=== PATIENT | male | born 2000 | race Caucasian/White ===

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

== ENCOUNTER 2022-11-20 10:10 | Emergency (ER) | payer BC, SELFPAY ==
[2022-11-20 10:10] VITALS: BP 143/89; PULSE 76; RESP 20; TEMP 36.6; O2SAT 98; BMI 34.0
[2022-11-20 10:42] LABS: UTC Strep Screen (Rapid) Negative (Negative)
--- NOTE | 2022-11-20 10:42 | EXP.UTC ---
Discharge Plan Disposition Patient Disposition: Home, Self-Care Condition: Good Prescriptions Prescriptions: No Action albuterol sulfate 90 mcg/actuation HFA aerosol inhaler 2 puff INHALATION Q4-6H PRN (Reason: shortness of breath or wheezing) Qty: 8.5 0RF prednisone 20 mg tablet 20 mg PO BID 5 Days Qty: 10 0RF naproxen 500 mg tablet 500 mg PO BID Qty: 30 0RF albuterol sulfate 8.5 GM HFA aerosol inhaler 8.5 gm IH BID PRN (Reason: Wheezing) Qty: 1 0RF amoxicillin 500 MG capsule 500 mg PO BID 10 Days Qty: 20 0RF prednisone 20 MG tablet 20 mg PO BID 4 Days Qty: 8 0RF [id number] 118 ML syrup 5 ml PO Q6HP PRN (Reason: Cough) Qty: 240 0RF cefdinir 300 MG capsule 300 mg PO BID Qty: 20 0RF albuterol sulfate 8.5 GM HFA aerosol inhaler 2 puffs IH Q6HP PRN (Reason: Shortness Of Breath) 30 Days Qty: 1 5RF Referrals Follow up/Referrals: Provider,Referral, MD [Primary Care Provider] - See instructions Activity Restrictions/Add. Instructions Additional Instructions/Restrictions: *Monitor Temp, Over the counter Motrin or Tylenol as directed/as needed Tylenol every 4 hours and Motrin every 6 hours (as long as your family doctor has told you that you can take it) for fever or pain. and straight to ER if unable to lower temp less than 101.0 after medication given *Warm salt water gargles may help to soothe the throat *Throat Lozenges? *Warm fluids like tea with honey may help to soothe the throat? *Sleep elevated *Humidifier/Vaporizer Your throat swab was sent for culture. Those results are typically sent to your primary care. Be sure to follow up in 2-3 days with your family doctor/primary care physician if no improvement so they can review those result and treat if necessary. If you don?t have a primary care doctor, I recommend you get one but in the mean time, you will have to return to a walk in clinic Follow up IMMEDIATELY for new or worsening symptoms or no Noticeable improvement over the next 48-72 hours. 911 for difficulty breathing or swallowing Clinical Impressions Clinical Impression: Sore throat (viral) Stand Alone Forms Stand Alone Forms: Work/School Release Instructions Patient Instructions: Sore Throat, Viral Pharyngitis Discharge ED Provider: [place]ly [place]ing [facility] [place] General Stated complaint: Sore throat,Vomiting Time Seen by Provider: 11/20/22 10:42 History of Present Illness Provider Complaint: Patient states that he woke up this morning with sore throat and vomited x 1 States that he has continued to have sore throat but not vomited anymore so he came in to get checked Related Data Previous Rx's Medication Instructions Recorded albuterol sulfate 90 mcg/actuation 2 puff inhalation Q4-6H PRN 03/30/21 aerosol inhaler shortness of breath or wheezing #8.5 grams albuterol sulfate 90 mcg/actuation 8.5 gm IH BID PRN Wheezing #1 ea 06/15/21 aerosol inhaler albuterol sulfate 90 mcg/actuation 2 puffs IH Q6HP PRN Shortness Of 08/26/21 aerosol inhaler Breath 30 days #1 ea Allergies Allergy/AdvReac Type Severity Reaction Status Date / Time No Known Allergies Allergy Verified 11/20/22 10:47 [facility] Disclaimer: The information contained in this section may have been updated after the patient was seen, as this information can be updated by other users. Social History Smoking Status: Current every day smoker tobacco type: e-cigarettes alcohol intake: never substance use type: denies use current occupational status: employed Travel in the last 8 weeks: Inside the [place] ROS Obtained: Yes All systems reviewed & no additional complaints except as documented and Yes Systems reviewed as appropriate & no additional complaints except as documented Constitutional Constitutional: Reports system reviewed and no additional complaints, except as documented, Reports as per HPI and Reports heada
[2022-11-20 11:30] VITALS: BP 143/89; PULSE 76; RESP 17; TEMP 36.6; O2SAT 98
== END 2022-11-20 11:10 | disposition home or self-care (01) ==
PROVIDERS: Emergency Provider Nurse Practitioner
DX: J02.9 Acute pharyngitis, unspecified (principal)
CPT/HCPCS: 87880; 99212; G0463

== ENCOUNTER 2023-09-02 21:14 | Emergency (ER) | payer OTHER, BC, SELFPAY ==
[2023-09-02 21:31] VITALS: BP 125/72; PULSE 81; RESP 16; TEMP 36.9; O2SAT 100; BMI 34.0
--- NOTE | 2023-09-02 21:52 | PC.NURSE ---
rounded on pt. no needs at this time, awaiting xrays
[2023-09-02 22:01] VITALS: BP 139/75; PULSE 83; RESP 20; O2SAT 97
--- NOTE | 2023-09-02 22:13 | XR_ITS ---
PROCEDURE INFORMATION: Exam: XR Left Scapula Exam date and time: 09/02/2023 10:14 PM Age: 22 years old Clinical indication: Injury or trauma; Fall; Work related; Blunt trauma (contusions or hematomas); Patient HX: Fell on a odilia at work tonight & landed on posterior left shoulder TECHNIQUE: Imaging protocol: Radiologic exam of the left scapula. Complete exam. COMPARISON: CR XR SHOULDER LT MIN 2V 09/02/2023 10:12 PM FINDINGS: Bones/joints: Mildly displaced fracture of the inferior tip of the scapula. No other fracture. No dislocation. Soft tissues: Normal. IMPRESSION: Mildly displaced fracture of the inferior tip of the scapula.
--- NOTE | 2023-09-02 22:13 | XR_ITS ---
PROCEDURE INFORMATION: Exam: XR Left Shoulder Exam date and time: 09/02/2023 10:12 PM Age: 22 years old Clinical indication: Injury or trauma; Fall; Work related; Blunt trauma (contusions or hematomas); Patient HX: Fell on a odilia at work tonight & landed on posterior left shoulder TECHNIQUE: Imaging protocol: Radiologic exam of the left shoulder. Views: 2 or more views. COMPARISON: CR XR CHEST PORTABLE 06/15/2021 10:03 AM FINDINGS: Bones/joints: Mildly displaced fracture of the inferior tip of the scapula. No other fracture. No dislocation. Soft tissues: Normal. IMPRESSION: Mildly displaced fracture of the inferior tip of the scapula.
[2023-09-02 22:30] VITALS: BP 149/87; PULSE 79; RESP 18; O2SAT 98
--- NOTE | 2023-09-02 22:54 | HMH.EDGENADL ---
Discharge Plan Disposition Patient Disposition: Home, Self-Care Prescriptions Prescriptions: No Action albuterol sulfate 90 mcg/actuation HFA aerosol inhaler 2 puff INHALATION Q4-6H PRN (Reason: shortness of breath or wheezing) Qty: 8.5 0RF albuterol sulfate 8.5 GM HFA aerosol inhaler 8.5 gm IH BID PRN (Reason: Wheezing) Qty: 1 0RF albuterol sulfate 8.5 GM HFA aerosol inhaler 2 puffs IH Q6HP PRN (Reason: Shortness Of Breath) 30 Days Qty: 1 5RF Referrals Follow up/Referrals: Kristopher Caruso DO [Staff Physician] - See instructions Provider,Referral, [Primary Care Provider] - See instructions Activity Restrictions/Add. Instructions Additional Instructions/Restrictions: Call your family doctor to establish care for this visit to the emergency department and schedule follow-up within 48 hours to ensure improvement. If you have any worsening of your condition or any other concerning signs or symptoms, return to the emergency department or your primary care doctor for further evaluation. Dr. Moore's information here for orthopedics Clinical Impressions Clinical Impression: Closed fracture of left scapula Qualifiers: Encounter type: initial encounter Scapula location: other part of scapula Qualified Code(s): S42.192A - Fracture of other part of scapula, left shoulder, initial encounter for closed fracture Stand Alone Forms Stand Alone Forms: Work/School Release Discharge ED Provider: Saqib Vora General Adult HPI General Chief complaint: PAIN Stated complaint: WC fall 09/02, left shoulder pain Time Seen by Provider: 09/02/23 21:43 Mode of Arrival: Ambulatory Source of Information: Patient Limitations: No Limitations Description of Symptoms (Recalled from ER Triage Doc. by RN): pt c/o L shoulder pain. pt states he was at work at [employer] when he fell and his his should on the corner of a doly. pt c/o tingling and pain in his L arm. History of Present Illness HPI narrative: 22-year-old male who is otherwise healthy presenting with left shoulder pain. Patient states that he fell at work and hit his left shoulder. Having pain in that side and difficulty ranging his left shoulder. Has not taken anything for the pain. Related Data Previous Rx's Medication Instructions Recorded albuterol sulfate 90 mcg/actuation 2 puff inhalation Q4-6H PRN 06/24/21 aerosol inhaler shortness of breath or wheezing #8.5 grams albuterol sulfate 90 mcg/actuation 8.5 gm IH BID PRN Wheezing #1 ea 06/15/21 aerosol inhaler albuterol sulfate 90 mcg/actuation 2 puffs IH Q6HP PRN Shortness Of 08/26/21 aerosol inhaler Breath 30 days #1 ea Allergies Allergy/AdvReac Type Severity Reaction Status Date / Time No Known Allergies Allergy Verified 09/02/23 21:35 [facility] Disclaimer: The information contained in this section may have been updated after the patient was seen, as this information can be updated by other users. Social History Smoking Status: Current every day smoker tobacco type: e-cigarettes alcohol intake: never substance use type: denies use current occupational status: employed Travel in the last 8 weeks: Inside the [place] ROS Obtained: Yes All systems reviewed & no additional complaints except as documented Physical Exam General General appearance: alert and in no apparent distress Head Head exam: atraumatic and normocephalic Eye Eye exam: Present normal appearance, PERRL and EOMI ENT ENT exam: Present mucous membranes moist Neck Neck exam: Present normal inspection, full ROM and trachea midline Respiratory Respiratory exam: Present normal lung sounds bilaterally; Absent respiratory distress, wheezes, stridor, accessory muscle use or prolonged expiratory phase Cardiovascular Cardiovascular exam: Present normal rhythm Abdominal Exam Abdominal exam: Present soft; Absent distention, tenderness, guarding, rebound, rigidity or normal delia
[2023-09-02 23:35] VITALS: BP 140/79; PULSE 89; RESP 20; TEMP 36.7; O2SAT 97
== END 2023-09-02 23:38 | disposition home or self-care (01) ==
PROVIDERS: Emergency Provider Emergency Medicine
DX: S42.192A Fracture of other part of scapula, left shoulder, initial encounter for closed fracture (principal); F17.290 Nicotine dependence, other tobacco product, uncomplicated; W01.198A Fall on same level from slipping, tripping and stumbling with subsequent striking against other object, initial encounter; M25.512 Pain in left shoulder
CPT/HCPCS: 73010; 73030; 99283

== ENCOUNTER 2023-10-30 18:52 | Emergency (ER) | payer BC, SELFPAY ==
[2023-10-30 19:20] VITALS: BP 131/77; PULSE 79; RESP 17; TEMP 36.8; O2SAT 100; BMI 35.9
--- NOTE | 2023-10-30 19:46 | ED_ITS ---
Discharge Plan Disposition Patient Disposition: Home, Self-Care Condition: Good Prescriptions Prescriptions: New amoxicillin 875 mg tablet 875 mg PO Q12H Qty: 20 0RF fluticasone propionate [Flonase Allergy Relief] 50 mcg/actuation spray,suspension 2 spray intranasal DAILY Qty: 16 0RF Rx Instructions: administer into each nostril daily pseudoephedrine HCl [Sudafed 12 Hour] 120 mg tablet extended release 120 mg PO Q12H PRN (Reason: nasal congestion) Qty: 20 0RF Referrals Follow up/Referrals: Provider,Referral, MD [Primary Care Provider] - See instructions Activity Restrictions/Add. Instructions Additional Instructions/Restrictions: *Monitor Temp, Over the counter Motrin or Tylenol as directed/as needed Tylenol every 4 hours and Motrin every 6 hours (as long as your family doctor has told you that you can take it) for fever or pain. and straight to ER if unable to lower temp less than 101.0 after medication given *Take medication as prescribed *Sleep elevated *Humidifier/Vaporizer *Flonase 2 sprays in each nostril daily but be aware that it may take 2-3 days before you notice improvement Follow up IMMEDIATELY for new or worsening symptoms or no Noticeable improvement over the next 48-72 hours. 911 for difficulty breathing or swallowing Clinical Impressions Clinical Impression: Otitis media Qualifiers: Otitis media type: unspecified Laterality: right Qualified Code(s): H66.91 - Otitis media, unspecified, right ear Instructions Patient Instructions: Middle Ear Infection, Pseudoephedrine Discharge ED Provider: Shelly Ching [facility] General Stated complaint: Right earache Mode of Arrival: Ambulatory Source of Information: Patient Limitations: No Limitations Time Seen by Provider: 10/30/23 19:47 Description of Symptoms (Recalled from Triage Doc. by RN): PATIENT C/O DECREASED HEARING TO RIGHT EAR X 4 DAYS HEENT Symptoms (Recalled from RN notes): Yes Resp Symptoms (Recalled from RN notes): No Skin Symptoms (Recalled from RN notes): No MS Symptoms (Recalled from RN notes): No Functional Status (Recalled from RN notes): WNL History of Present Illness Provider Complaint: Patient states that he has been having pain and pressure in his right ear for about 4 days and feels like it is under water having trouble hearing out of his right ear States today it was hurting him worse and couldnt hear at all so he came in Related Data Previous Rx's Medication Instructions Recorded amoxicillin 875 mg tablet 875 mg PO Q12H #20 tabs 10/30/23 fluticasone propionate 50 2 spray intranasal DAILY #16 grams 10/30/23 mcg/actuation nasal spray,suspension (Flonase Allergy Relief) pseudoephedrine HCl 120 mg 120 mg PO Q12H PRN nasal 10/30/23 tablet,extended release (Sudafed congestion #20 tabs 12 Hour) Allergies Allergy/AdvReac Type Severity Reaction Status Date / Time No Known Allergies Allergy Verified 10/17/23 09:51 Worker's Comp Is this a Worker's Comp case?: No [facility] Disclaimer: The information contained in this section may have been updated after the patient was seen, as this information can be updated by other users. Medical History (Updated 10/30/23 @ 19:57 by Shelly Ching APRN) Asthma Social History Smoking Status: Current every day smoker tobacco type: e-cigarettes alcohol intake: never substance use type: denies use current occupational status: employed Travel in the last 8 weeks: [place] the [place] ROS Obtained: Yes All systems reviewed & no additional complaints except as documented and Yes Systems reviewed as appropriate & no additional complaints except as documented Constitutional Constitutional: Reports system reviewed and no additional complaints, except as documented and Reports as per HPI ENT Ears, Nose, Mouth, and Throat: Reports system reviewed and no additional complaints, except as documented, Reports as per HPI and Reports otalgia Cardiovascular Cardiovascular: Reports system reviewed and no additional complaints, except as documented and Reports as per HPI Respiratory Respiratory: Reports system reviewed and no additional complaints, except as documented and Reports as per HPI Gastrointestinal Gastrointestingal: Reports system reviewed and no additional complaints, except as documented and as per HPI Physical Exam General General appearance: alert and in no apparent distress ENT ENT exam: Present mucous membranes moist Expanded ENT Exam TM/Canal exam: Right TM: bulging and Bilateral TM: erythema Respiratory Respiratory exam: Present normal lung sounds bilaterally; Absent respiratory dis tress or wheezes Cardiovascular Cardiovascular exam: Present regular rate, normal rhythm and normal heart sounds Neurological Exam Neurological exam: Present alert, oriented X3 and normal gait Medical Decision Making Christofer Inquiry Pt receiving controlled substance: No Christofer was queried for this patient: No Vital Signs: 10/30/23 19:20 Temperature 98.3 F Temperature Source Oral Pulse Rate [Left Brachial] 79 Respiratory Rate 17 Blood Pressure [Left Arm] 131/77 Blood Pressure Mean [Left Arm] 95 Blood Pressure Source [Left Arm] Automatic Cuff Blood Pressure Position [Left Arm] Sitting 02 Sat by Pulse Oximetry 100 Oxygen Delivery Method Room Air
[2023-10-30 19:47] VITALS: BP 131/77; PULSE 79; RESP 17; TEMP 36.8; O2SAT 100
== END 2023-10-30 20:07 | disposition home or self-care (01) ==
PROVIDERS: Emergency Provider Nurse Practitioner
DX: H66.91 Otitis media, unspecified, right ear (principal); H92.01 Otalgia, right ear; F17.290 Nicotine dependence, other tobacco product, uncomplicated
CPT/HCPCS: 99212; 99214; G0463

== ENCOUNTER 2023-11-07 11:07 | Outpatient (CLI) | payer BC, SELFPAY ==
--- NOTE | 2023-11-07 11:10 | XR_ITS ---
FINAL REPORT CLINICAL HISTORY: left scapula fx FINDINGS: Left scapula 2 views were obtained. There is no acute fracture or dislocation. Visualized joint spaces are normally aligned. Soft tissues are unremarkable. IMPRESSION: No acute bony abnormality. Reviewed, Interpreted and Dictated by Irma Aquino MD Transcribed by Lalita Caceres Authenticated and [facility]
== END 2023-11-07 23:59 ==
LOC: RAD 11:07
PROVIDERS: Visit Provider Orthopaedic Surgery
DX: M25.512 Pain in left shoulder (principal); S42.102A Fracture of unspecified part of scapula, left shoulder, initial encounter for closed fracture
CPT/HCPCS: 73010

== ENCOUNTER 2025-01-30 19:49 | Emergency (ER) | payer MEDICAID, SELFPAY ==
[2025-01-30 19:56] VITALS: BP 133/73; PULSE 89; RESP 20; TEMP 36.8; O2SAT 98; BMI 34.7
--- NOTE | 2025-01-30 19:58 | HMH.EDGENADL ---
Discharge Plan Disposition Patient Disposition: Home, Self-Care Condition: Good Prescriptions Prescriptions: New cefdinir 300 mg capsule 300 mg PO BID 10 Days Qty: 20 0RF No Action amoxicillin 875 mg tablet 875 mg PO Q12H Qty: 20 0RF fluticasone propionate [Flonase Allergy Relief] 50 mcg/actuation spray,suspension 2 spray intranasal DAILY Qty: 16 0RF Rx Instructions: administer into each nostril daily pseudoephedrine HCl [Sudafed 12 Hour] 120 mg tablet extended release 120 mg PO Q12H PRN (Reason: nasal congestion) Qty: 20 0RF Clinical Impressions Clinical Impression: Otitis media Instructions Patient Instructions: Middle Ear Infection Print Language Print Language: Bhutanese Discharge ED Provider: Saqib Vora General Adult HPI <Nikki Bean (ED), ROLLING UP MACHINE OPERATOR - Last Filed: 01/30/25 20:25> General Chief complaint: Ear Stated complaint: Right earache Time Seen by Provider: 01/30/25 19:54 History of Present Illness HPI narrative: This is a 24-year-old male who presents to the ED today for complaint of right ear pain. He denies any fevers or chills. No sore throat or cough. No other symptoms that he is aware of. Related Data Previous Rx's ?Medication ?Instructions ?Recorded amoxicillin 875 mg tablet 875 mg PO Q12H #20 tabs 10/30/23 fluticasone propionate 50 2 spray intranasal DAILY #16 grams 10/30/23 mcg/actuation nasal spray,suspension (Flonase Allergy Relief) pseudoephedrine HCl 120 mg 120 mg PO Q12H PRN nasal 10/30/23 tablet,extended release (Sudafed congestion #20 tabs 12 Hour) cefdinir 300 mg capsule 300 mg PO BID 10 days #20 caps 01/30/25 Allergies Allergy/AdvReac Type Severity Reaction Status Date / Time No Known Allergies Allergy Verified 11/07/23 10:47 PFSH <Nikki Bean (ED), ROLLING UP MACHINE OPERATOR - Last Filed: 01/30/25 20:25> PFS Disclaimer: The information contained in this section may have been updated after the patient was seen, as this information can be updated by other users. Medical History Asthma Social History Smoking Status: Current every day smoker tobacco type: e-cigarettes alcohol intake: never substance use type: denies use current occupational status: employed Travel in the last 8 weeks?: Inside the [place] Have you lived/traveled outside US in past 30 days?: No Contact w/someone who lives/traveled outside US past 30 days?: No Exposure to someone with infectious disease in past 14 days?: No Do you have a fever (greater than 100.4 F or 38 C)?: No Have you tested positive for COVID-19?: No Exposed to someone with COVID-19 in past 14 days?: No Do you have a sore throat?: No Do you have a cough?: No Do you have any weakness?: No Do you have any diarrhea?: No Are you experiencing any unusual bleeding?: No Do you have any muscle aches/pain?: No Do you have any abdominal pain?: No Are you experiencing loss of taste or smell?: No Other Medical History Have you received the Flu Vaccine for this season: No Have you received the Pneumonia Vaccine: No <Nikki Bean (ED), ROLLING UP MACHINE OPERATOR - Last Filed: 01/30/25 20:25> ROS Obtained: Yes Systems reviewed as appropriate & no additional complaints except as documented Constitutional Constitutional: Reports as per HPI Physical Exam <Nikki Bean (ED), ROLLING UP MACHINE OPERATOR - Last Filed: 01/30/25 20:25> General General appearance: alert and in no apparent distress Head Head exam: atraumatic and normocephalic Eye Eye exam: Present normal appearance, PERRL and EOMI ENT ENT exam: Present normal oropharynx, mucous membranes moist and other (Right TM with erythema and bulge) Neck Neck exam: Present full ROM and trachea midline Respiratory Respiratory exam: Present normal lung sounds bilaterally Cardiovascular Cardiovascular exam: Present regular rate, normal rhythm, normal heart sounds, +S1 and +S2 Extremities Exam Extremities exam: Present full ROM Neurological Exam Neurological exam: Present alert and oriented X3 Skin Skin exam: Present warm, dry and intact Medical Decision Making <Nikki Bean (ED), ROLLING UP MACHINE OPERATOR - Last Filed: 01/30/25 20:25> Medical Records Screening: Per USPSTF and CDC recommendations, given the prevalence of disease in our region, it is our hospital?s policy to screen for HIV and viral Hepatitis for all patients aged 18 and over and those with ongoing risk factors. Christofer Inquiry Pt receiving controlled substance: No Christofer was queried for this patient: No Vital Signs: 01/30/25 19:56 01/30/25 20:10 Temperature 98.3 F 98.3 F Temperature Source Oral Oral Pulse Rate 18 L Pulse Rate [Apical] 89 Respiratory Rate 20 18 Blood Pressure 133/73 Blood Pressure [Right Arm] 133/73 Blood Pressure Mean [Right Arm] 93 02 Sat by Pulse Oximetry 98 Oxygen Delivery Method Room Air Room Air Orders (Tests/Meds): ED MEDICATIONS Discontinued Medications Generic Name Dose Route Start Last Admin Trade Name Freq PRN Reason Stop Dose Admin Cefdinir 300 mg 01/30/25 20:01 01/30/25 20:06 Cefdinir 300mg Capsule PO 01/30/25 20:02 300 mg ONCE ONE Administration Medical Decision Narrative: Insert review patient is a 24-year-old male presenting to the emergency department for evaluation of ear pain. Patient is hemodynamically stable and nontoxic-appearing upon arrival, afebrile. Differential diagnosis includes otitis media, allergies. No workup will be conducted as patient has an otitis media. Patient will be prescribed antibiotics and told to follow-up with his primary care physician with any additional problems or concerns. Patient is safe for discharge home. <Saqib Vora MD - Last Filed: 02/03/25 07:36> Vital Signs: 01/30/25 19:56 01/30/25 20:10 Temperature 98.3 F 98.3 F Temperature Source Oral Oral Pulse Rate 18 L Pulse Rate [Apical] 89 Respiratory Rate 20 18 Blood Pressure 133/73 Blood Pressure [Right Arm] 133/73 Blood Pressure Mean [Right Arm] 93 02 Sat by Pulse Oximetry 98 Oxygen Delivery Method Room Air Room Air Orders (Tests/Meds): ED MEDICATIONS Discontinued Medications Generic Name Dose Route Start Last Admin Trade Name Freq PRN Reason Stop Dose Admin Cefdinir 300 mg 01/30/25 20:01 01/30/25 20:06 Cefdinir 300mg Capsule PO 01/30/25 20:02 300 mg ONCE ONE Administration Medical Decision Narrative: Insert review patient is a 24-year-old male presenting to the emergency department for evaluation of ear pain. Patient is hemodynamically stable and nontoxic-appearing upon arrival, afebrile. Differential diagnosis includes otitis media, allergies. No workup will be conducted as patient has an otitis media. Patient will be prescribed antibiotics and told to follow-up with his primary care physician with any additional problems or concerns. Patient is safe for discharge home. I was consulted by the LUISA, and we discussed the complexity of the problems being addressed. I approved the treatment and management plan for this patient's care in the Emergency Department, thus performing a substantive portion of the medical decision making. Saqib Vora MD Critical Care <Nikki Bean (ED), ROLLING UP MACHINE OPERATOR - Last Filed: 01/30/25 20:25> Critical Care Time Critical Care Time: No
[2025-01-30] MEDS: CEFDINIR 300MG CAPSULE 300 MG PO (20:06)
[2025-01-30 20:10] VITALS: BP 133/73; PULSE 18; RESP 18; TEMP 36.8; O2SAT 98
== END 2025-01-30 20:11 | disposition home or self-care (01) ==
LOC: ER 20:03
PROVIDERS: Emergency Provider Emergency Medicine
DX: H66.91 Otitis media, unspecified, right ear (principal)
CPT/HCPCS: 99283